=== PATIENT | female | born 1935 | race Caucasian/White ===

== ENCOUNTER 2019-10-19 18:29 | Emergency (ER) | payer MEDICARE, OTHER ==
[~2019-10-19] VITALS: Ht 160 cm; Wt 72.6 kg
--- NOTE | 2019-10-19 19:25 | NUR ---
BIBF. C/O "HAVING LEFT LOWER EXT SWELLING FOR AROUND X30 DAYS NOW" -SOB AOX4 VSS
[2019-10-19 20:10] VITALS: BP 141/79
== END 2019-10-19 20:11 | disposition home or self-care (01) ==
LOC: ER 18:32
DX: R60.0 Localized edema (principal); I10 Essential (primary) hypertension; K21.9 Gastro-esophageal reflux disease without esophagitis; Z98.890 Other specified postprocedural states; Z85.42 Personal history of malignant neoplasm of other parts of uterus
CPT/HCPCS: 93971-TC